=== PATIENT | female | born 1940 | race Caucasian/White ===

== ENCOUNTER 2019-11-27 17:47 | Emergency (ER) | payer MEDICARE, OTHER ==
[~2019-11-27] VITALS: Ht 157.5 cm; Wt 75.8 kg
[2019-11-27] MEDS ORDERED: LISINOPRIL20 MG PO (18:37)
[2019-11-27] MEDS ORDERED: SIMVASTATIN20 MG PO (18:37)
[2019-11-27] MEDS ORDERED: METOPROLOL SUCC25 MG PO (18:37)
[2019-11-27] MEDS ORDERED: CLEOCIN HCL300 MG PO (18:38)
[2019-11-27] MEDS ORDERED: GLIPIZIDE5 MG PO (18:38)
[2019-11-27] MEDS ORDERED: VENTOLIN HFA18 GM INH (18:39)
[2019-11-27] MEDS ORDERED: VITAMIN E100 UNI1 PO (18:39)
[2019-11-27] MEDS ORDERED: CALCIUM 600 +1 EAC8 PO (18:39)
[2019-11-27] MEDS ORDERED: VITAMIN C500 M5 PO (18:40)
[2019-11-27] MEDS ORDERED: CIPRO500 MG PO (22:48)
== END 2019-11-27 22:59 | disposition home or self-care (01) ==
LOC: ED 17:47
DX: K11.20 Sialoadenitis, unspecified (principal); I10 Essential (primary) hypertension; E11.9 Type 2 diabetes mellitus without complications; E78.00 Pure hypercholesterolemia, unspecified; Z87.891 Personal history of nicotine dependence; Z88.0 Allergy status to penicillin; Z79.899 Other long term (current) drug therapy
CPT/HCPCS: 70491; 80053; 85025; 99284-25; Q9967

== ENCOUNTER 2021-02-28 12:29 | Emergency (ER) | payer MEDICARE, OTHER ==
[~2021-02-28] VITALS: Ht 157.5 cm; Wt 73.5 kg
[~2021-02-28 12:29] MED LIST: CALCIUM 600 +1 EAC8 PO; CIPRO500 MG PO; CLEOCIN HCL300 MG PO; GLIPIZIDE5 MG PO; LISINOPRIL20 MG PO; METOPROLOL SUCC25 MG PO; SIMVASTATIN20 MG PO; VENTOLIN HFA18 GM INH; VITAMIN C500 M5 PO; VITAMIN E100 UNI1 PO
[2021-02-28] MEDS ORDERED: PROPRANOLOL HCL20 MG PO (12:43)
[2021-02-28] MEDS ORDERED: METFORMIN HCL1000 MG PO (12:43)
--- NOTE | 2021-02-28 22:33 | EKG ---
[facility] [address] [facility] [place] [id number] Signed Atrial fibrillation Abnormal ECG No previous ECGs available Confirmed by LV VAZ MD ([id number] on 02/28/2021 10:33:06 PM Electronically Signed By: LV VAZ MD 02/28/212232 PATIENT NAME: ASCENCION CONKLIN Electrocardiogram DATE OF : 36 PHYSICIAN: LV VAZ MD REPORT #: [id number] REPORT IS CONFIDENTIAL AND NOT TO BE RELEASED WITHOUT AUTHORIZATION
== END 2021-02-28 18:33 | disposition home or self-care (01) ==
LOC: ED 12:29
PROC: 0HQ1XZZ Repair Face Skin, External Approach (ICD-10-PCS; principal; 2021-02-28)
DX: S01.81XA Laceration without foreign body of other part of head, initial encounter (principal); S80.211A Abrasion, right knee, initial encounter; S60.811A Abrasion of right wrist, initial encounter; W01.10XA Fall on same level from slipping, tripping and stumbling with subsequent striking against unspecified object, initial encounter; I10 Essential (primary) hypertension; E11.9 Type 2 diabetes mellitus without complications; E78.00 Pure hypercholesterolemia, unspecified; Z88.0 Allergy status to penicillin; Z88.5 Allergy status to narcotic agent; Z79.899 Other long term (current) drug therapy; Z79.84 Long term (current) use of oral hypoglycemic drugs
CPT/HCPCS: 12013; 70450; 70486; 72125; 73110; 73560; 80053; 81001; 85025; 99284-25; J7030